=== PATIENT | male | born 1945 | race Caucasian/White ===

== ENCOUNTER 2017-11-19 10:54 | Emergency (ER) | payer MEDICARE, BC ==
--- NOTE | 2017-11-19 12:06 | CT ---
CT BRAIN WITHOUT CONTRAST: HISTORY: Head injury. Trauma. COMPARISON: CT brain from 2009. FINDINGS: No acute territorial infarct or hemorrhage. No midline shift or mass effect. Ventricular size and e xtraaxial CSF spaces are normal. The calvarium is intact. Paranasal sinuses and mastoids are clear. IMPRESSION: No acute intracranial abnormality. POS: [facility]
== END 2017-11-19 12:15 | disposition home or self-care (01) ==
LOC: ERS 10:54
DX: S06.0X0A Concussion without loss of consciousness, initial encounter (principal); S00.03XA Contusion of scalp, initial encounter; E11.9 Type 2 diabetes mellitus without complications; E78.5 Hyperlipidemia, unspecified; E03.9 Hypothyroidism, unspecified; Z86.73 Personal history of transient ischemic attack (TIA), and cerebral infarction without residual deficits; Z79.82 Long term (current) use of aspirin; Z79.899 Other long term (current) drug therapy; W55.22XA Struck by cow, initial encounter
CPT/HCPCS: 70450

== ENCOUNTER 2022-04-13 15:28 | Emergency (ER) | payer MEDICARE, BC | END 2022-04-13 18:14 | disposition home or self-care (01) | LOC: ERS 15:28 | DX: N64.4 Mastodynia (principal); E03.9 Hypothyroidism, unspecified; E78.5 Hyperlipidemia, unspecified; Z79.899 Other long term (current) drug therapy; Z79.82 Long term (current) use of aspirin | CPT/HCPCS: 93005 ==